=== PATIENT | male | born 1960 | race Caucasian/White ===

== ENCOUNTER 2018-11-27 12:14 | Observation (INO) ==
[2018-11-27] MEDS ORDERED: Ipratropium/Albuterol Neb 3 ML IH ONE (13:38)
[2018-11-27] MEDS ORDERED: methylPREDNISolone 125 MG/2 ML VIAL IVP ONE (14:04)
[2018-11-27] MEDS ORDERED: 0.9 % Sodium Chloride 1,000 ML IVC ONE (14:04)
[2018-11-27] MEDS ORDERED: Azithromycin 500 MG in D5% in Water 250 ML IVPB ONE (14:05)
[2018-11-27 14:29] LABS: Basophils % 0.3 %; Eosinophils % 0.2 %; Hematocrit 38.8 % (37.5-50.1); Hemoglobin 12.7 g/dL (12.9-16.9); Immature Granulocytes % 0.7 % (0-4); Lymphocytes # 0.4 K/mcL (0.6-4.6); Lymphocytes % 3.5 %; Mean Corpuscular HGB Conc 32.7 g/dL (31.6-35.5); Mean Corpuscular Hemoglobin 30.2 pg (28.0-33.3); Mean Corpuscular Volume 92.4 fL (83.0-100.0); Mean Platelet Volume 11.6 fL (9.4-12.4); Monocytes # 0.6 K/mcL (0.0-1.3); Monocytes % 4.9 %; Platelet Count 174 K/mcL (140-400); Red Cell Distribution Width 13.5 % (11.5-14.5); Segmented Neutrophils % 90.4 %; White Blood Count 12.2 K/mcL (4.3-11.1)
[2018-11-27 14:46] LABS: Calcium 9.6 mg/dL (8.6-10.3); Potassium 4.8 mEq/L (3.5-5.1)
[2018-11-27 14:48] LABS: Troponin I 0.03 ng/mL (< 0.04)
[2018-11-27 14:54] LABS: INR 2.7; Prothrombin Time 30.8 Seconds (9.4-12.1)
[2018-11-27 16:22] LABS: ABG Base Excess -1 mEq/L (-2 to 3); ABG HCO3 26 mEq/L (21-27); ABG Oxygen Saturation 87 % (95-98); ABG PCO2 47 mmHg (35-45); ABG PH 7.34 pH Units (7.32-7.45); ABG PO2 56 mmHg (85-104); ABG TCO2 27 mEq/L (20-26)
[2018-11-27] MEDS ORDERED: *HR* Metoprolol 5 MG/5 ML VIAL IVP ONE ×2 (17:46→18:28)
[2018-11-27] MEDS ORDERED: *HR* Warfarin 3 MG TABLET PO SCH (19:20)
[2018-11-27] MEDS ORDERED: Naloxone 0.4 MG/ML INJ IVP PRN (19:20)
[2018-11-27] MEDS: Ipratropium/Albuterol Neb 3 ML IH SCH (20:05)
[2018-11-27] MEDS: 0.9 % Sodium Chloride 1,000 ML IVC SCH (20:10)
[2018-11-27] MEDS: Budesonide/Formoterol 160/4.5 1 PUFF INH IH SCH (22:38)
[2018-11-28] MEDS: methylPREDNISolone 125 MG/2 ML VIAL IVP SCH ×3 (00:14→12:58)
[2018-11-28] MEDS: Ipratropium/Albuterol Neb 3 ML IH SCH ×5 (00:37→16:13)
[2018-11-28] MEDS: 0.9 % Sodium Chloride 1,000 ML IVC SCH (05:55)
[2018-11-28] MEDS: Budesonide/Formoterol 160/4.5 1 PUFF INH IH SCH (08:17)
[2018-11-28] MEDS ORDERED: Aspirin Enteric Coated 81 MG Tablet PO SCH (09:00)
[2018-11-28] MEDS: carvediloL 25 MG TABLET PO SCH ×2 (09:00→16:02)
[2018-11-28] MEDS ORDERED: Isosorbide MONOnitrate (24 HR) 60 MG TAB.ER.24H PO SCH (09:00)
[2018-11-28] MEDS ORDERED: Cholecalciferol (D-3) 1,000 UNIT (25MCG) TABLET PO SCH (09:00)
[2018-11-28] MEDS ORDERED: DilTIAZem CD (24hr) 240 MG CAP.ER.24H PO SCH (12:15)
[2018-11-28] MEDS ORDERED: Bumetanide 1 MG TABLET PO SCH (12:15)
[2018-11-28] MEDS ORDERED: cefTRIAXone 1,000 MG in 0.9 % Sodium Chloride Mini Bag 100 ML IVPB SCH (15:00)
[2018-11-28] MEDS ORDERED: *HR* Metoprolol 5 MG/5 ML VIAL IVP ONE (15:27)
[2018-11-28] MEDS ORDERED: *HR* LORazepam 2 MG/ML VIAL IVP PRN (15:29)
[2018-11-28] MEDS ORDERED: *HR* LORazepam 2 MG/ML VIAL IVP ONE (15:29)
[2018-11-28] MEDS ORDERED: Furosemide 40 MG/4 ML VIAL IVP ONE (15:31)
[2018-11-28] MEDS ORDERED: *HR* Digoxin 0.5 MG/2 ML AMPUL IVP ONE (15:32)
[2018-11-28] MEDS ORDERED: Azithromycin 500 MG in D5% in Water 250 ML IVPB SCH (16:00)
[2018-11-28 16:50] LABS: ABG Base Excess -2 mEq/L (-2 to 3); ABG HCO3 30 mEq/L (21-27); ABG Oxygen Saturation 99 % (95-98); ABG PCO2 96 mmHg (35-45); ABG PH 7.11 pH Units (7.32-7.45); ABG PO2 171 mmHg (85-104); ABG TCO2 33 mEq/L (20-26); Blood Gas Modality BIVENT
[2018-11-28] MEDS ORDERED: DilTIAZem 125 MG in D5% in Water 100 ML IVC SCH (17:15)
[2018-11-28] MEDS ORDERED: 0.9 % Sodium Chloride 250 ML ONE (17:15)
[2018-11-28 17:33] VITALS: BP 149/81
[2018-11-28 17:36] LABS: ABG Base Excess -3 mEq/L (-2 to 3); ABG HCO3 29 mEq/L (21-27); ABG Oxygen Saturation 94 % (95-98); ABG PCO2 85 mmHg (35-45); ABG PH 7.14 pH Units (7.32-7.45); ABG PO2 95 mmHg (85-104); ABG TCO2 31 mEq/L (20-26)
[2018-11-28] MEDS ORDERED: *HR* Warfarin 5 MG TABLET PO SCH (18:00)
[2018-11-28] MEDS ORDERED: Lactobacillus 1 EACH CAP.SPRINK PO SCH (21:00)
== END 2018-11-28 18:18 | disposition other institution (70) ==
LOC: INPPIK 12:14 → EMEROOPIK 12:14 → INPPIK 20:00
PROVIDERS: ADMIT Internal Medicine; ATTEND Internal Medicine